=== PATIENT | female | born 1980 | race Caucasian/White ===

== ENCOUNTER 2018-09-19 18:17 | Emergency (ER) | payer SELFPAY ==
--- NOTE | 2018-09-19 21:50 | ED Physician Documentation ---
General Adult - HISTORIAN Historian: patient - HPI Stated Complaint: "Out of seizure medications" Chief Complaint: General Adult Further Comments: yes (37 year old female patient presents with complaint of "out of all my medications". Patient states she took the last of her ativan, gabapentin and dilantin. States her neurologist is in [place], her home is in [place] and she last filled her medications in [place]. Patient reports seizure history since childhood. Last seizure 30 days ago. Patient does not routinely see her neurology or primary care provider.) - ROS CONST: no problems EYES/ENT: none CVS/RESP: none GI/: none MS/SKIN/LYMPH: none NEURO/PSYCH: denies: headache - PAST HX Past History: other (seizures) Allergies/Adverse Reactions: Allergies Allergy/AdvReac Type Severity Reaction Status Date / Time lamotrigine [From Lamictal] Allergy Rash Verified 09/19/18 21:08 levetiracetam [From Keppra] AdvReac Hallucinati Verified 09/19/18 21:08 ons Home Medications: Ambulatory Orders Medication Instructions Recorded Gabapentin [Neurontin] 1,200 mg PO QID 09/19/18 Lorazepam [Ativan] 2 mg PO BID 09/19/18 Multivitamin [Daily Multiple 1 each PO DAILY 09/19/18 Vitamin] Phenytoin Sodium Extended 300 mg PO QID 09/19/18 [Dilantin] - SOCIAL HX Smoking History: cigarettes Drug Use: marijuana (daily use) - FAMILY HX Family History: No - REVIEWED ASSESSMENTS Nursing Assessment Reviewed: Yes Vitals Reviewed: Yes Progress - Progress Progress: Patient reported use of marijuana with seizure medications. Patient stated "my neurologist says it Ok for me to use it". Explained this provider would refill patient's dilantin prescription. Instructed patient to see her providers as soon as possible. Explained other medications needed to be filled and monitored by her PCP. These were not medication filled from the ER for safety purposes. Instructed patient to see h er neurologist abigail. Dilantin refilled. After discharge, patient requested to speak with provider without boyfriend present. Patient stated she did not have insurance and could not fill her prescription. She did not want to tell her boyfriend. Patient stated she could not afford $60 medication. Prescription discount coupon and card provided. Patient yelling in ER "why aren't you filling the gabapentin". Patient yelling "he won't take me to fill one if I don't have both". Patient refused to take dilantin prescription. Refused to sign discharge papers. Left AMA. General Adult Physical Exam - PHYSICAL EXAM GENERAL APPEARANCE: [id number] N EENT: eye inspection normal, SARAH RESPIRATORY: no resp distress, chest non-tender, breath sounds normal CVS: reg rate & rhythm, heart sounds normal, equal pulses, no murmur, no gallop, PMI nml, no JVD, no friction rub, 24 SKIN: normal color, warm/dry, NR, INT, PAL, DR EXTREMITIES: non-tender, normal range of motion, no evidence of injury, no edema , J, NURSES ASSISTANT NEURO: oriented X3, CN's nml as tested, motor nml, sensation nml, mood/affect nml Discharge Clincal Impression: Non compliance w medication regimen, Left against medical advice Referrals: Primary Doctor,No [Primary Care Provider] - 2 Days Additional Instructions: Do not use marijuana with your current medications. See your neurologist or primary care provider for the rest of your refills Condition: Stable Disposition: 01 HOME, SELF-CARE Decision to Admit: NO Decision Time: 21:50
[2018-09-19 22:14] VITALS: BP 122/63
== END 2018-09-19 22:30 | disposition left against medical advice (07) ==
LOC: ED 18:17
DX: Z91.14 Patient's other noncompliance with medication regimen (principal)
CPT/HCPCS: 99281